=== PATIENT | female | born 1985 | race Caucasian/White ===

== ENCOUNTER 2017-02-07 11:59 | Emergency (ER) | payer OTHER ==
[2017-02-07] MEDS ORDERED: Tetan/Diph/Pertus SYR(Tdap)* 0.5 ML SYR(BOOSTRIX) use SYR IM ONE (12:30)
[2017-02-07 14:20] LABS: Manual Entry Verification CAS0014; Rapid HIV INT CONT QC Line Present; Rapid HIV Kit Lot# H073002
[2017-02-07 14:39] VITALS: BP 123/82
[2017-02-07] MEDS ORDERED: Hepatitis B Immune Globulin* 1 ML VIAL IM ONE ×2 (14:40→15:00)
[2017-02-07] MEDS ORDERED: Hepatitis B Immune Globulin* > 312 UNITS/ML 5 ML VIAL IM ONE ×4 (15:00)
[2017-02-07] MEDS ORDERED: Hepatitis B Immune Globulin* > 312 UNITS/ML 5 ML VIAL ONE (15:04)
[2017-02-07] MEDS ORDERED: Tenofovir/Emtricitabine(*) TAB PO ONE ×2 (15:12→16:00)
[2017-02-07] MEDS ORDERED: Raltegravir* 400 MG TAB PO ONE ×2 (15:12→16:00)
[2017-02-07] MEDS ORDERED: Ondansetron ODT TAB* 4 MG PO ONE (15:13)
[2017-02-07 18:13] LABS: ALT 39 U/L (7-52); AST 48 U/L (13-39); Albumin 4.1 g/dL (3.2-5.2); Alkaline Phosphatase 44 U/L (34-104); Anion Gap 9 mmol/L (2-11); BUN/Creatinine Ratio 11.5 (8-20); Blood Urea Nitrogen 9 mg/dL (6-24); CO2 Carbon Dioxide 22 mmol/L (22-32); Calcium 9.4 mg/dL (8.6-10.3); Chloride 107 mmol/L (101-111); EGFR African American 111.5 (>60); EGFR Non-African American 86.7 (>60); Globulin 2.7 g/dL (2-4); Glucose 97 mg/dL (70-100); Potassium 4.1 mmol/L (3.5-5.0); Sodium 138 mmol/L (133-145); Total Protein 6.8 g/dL (6.4-8.9)
--- NOTE | 2017-02-09 18:24 | ED ---
- HPI Summary HPI Summary: Employee of [employer] [facility] [place], [place] here with needlestick. 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 This pt reports she couldn't get the needle to retract quickly enough hence the self-stick. She noticed bleeding under her glove and washed her hand after. Reported to boss who sent her here. She herself has no known h/o HIV, Hepatitis but reports she' s concerned as it appeared source pt may have Hepatits C. Source pt left before anyone could request further testing or access to records. No other injuries a result of incident. - History of Current Complaint Chief Complaint: EDExposureBodyFluid Stated Complaint: NEEDLE STICK CONTAMINATED NEEDLE Time Seen by Provider: 02/07/17 12:08 PMH/Surg Hx/FS Hx/Imm Hx Previously Healthy: Yes Endocrine/Hematology History: Reports: Hx Thyroid Disease - hypo Denies: Hx Anticoagulant Therapy, Hx Blood Disorders, Hx Diabetes, Autoimmune Disease Cardiovascular History: Denies: Hx Hypertension Respiratory History: Denies: Hx Asthma, Hx Chronic Obstructive Pulmonary Disease (COPD) GI History: Denies: Hx Ulcer - Surgical History Surgery Procedure, Year, and Place: Tonsilectomy. right elbow Infectious Disease History: No Infectious Disease History: Denies: Hx Clostridium Difficile, Hx Hepatitis, Hx Human Immunodeficiency Virus (HIV), Hx of Known/Suspected MRSA, Hx Shingles, Hx Tuberculosis, Hx Known/ Suspected VRE, Hx Known/Suspected VRSA, History Other Infectious Disease, Traveled Outside the [place] in Last 30 Days - Family History Known Family History: Positive: None - Social History Occupation: Employed Full-time Alcohol Use: Occasionally Hx Substance Use: No Substance Use Type: Reports: None Hx Tobacco Use: No Smoking Status (MU): Never Smoked Tobacco Have You Smoked in the Last Year: No Review of Systems Constitutional: Negative Negative: Fever, Chills, Fatigue Positive: no symptoms reported Musculoskeletal: Negative Negative: Arthralgia, Myalgia, Decreased ROM, Edema Skin: Other - see HPI Neurological: Negative Psychological: Normal All Other Systems Reviewed And Are Negative: Yes Physical Exam Triage Information Reviewed: Yes Vital Signs On Initial Exam: Initial Vitals Temp Pulse Resp BP Pulse Ox 97.0 F 87 15 131/92 100 02/07/17 12:02 02/07/17 12:02 02/07/17 12:02 02/07/17 12:02 02/07/17 12:02 Vital Signs Reviewed: Yes Appearance: Positive: Well-Appearing, No Pain Distress, Obese Skin: Positive: Warm, Dry - pinpoint area of erythema over distal tip of Left index finger - no bleeding, no streaking - wound is closed; mild TTP Eyes: Positive: Normal, EOMI ENT: Positive: Hearing grossly normal Respiratory/Lung Sounds: Positive: Breath Sounds Present Cardiovascular: Positive: Pulses are Symmetrical in both Upper and Lower Extremities Musculoskeletal: Positive: Normal, Strength/ROM Intact Neurological: Positive: Normal, Sensory/Motor Intact, Alert, Oriented to Person Place, Time, CN Intact II-III Psychiatric: Positive: Normal Diagnostics - Vital Signs Vital Signs Temp Pulse Resp BP Pulse Ox 02/07/17 14:38 98.6 F 86 16 123/82 100 02/07/17 12:23 97 F 87 18 131/92 100 02/07/17 12:02 97.0 F 87 15 131/92 100 - Laboratory Lab Results: Lab Results 02/07/17 02/07/17 Range/Units 13:36 13:36 Sodium 138 (133-145) mmol/L Potassium 4.1 (3.5-5.0) mmol/L Chloride 107 (101-111) mmol/L Carbon Dioxide 22 (22-32) mmol/L Anion Gap 9 (2-11) mmol/L BUN 9 (6-24) mg/dL Creatinine 0.78 (0.51-0.95) mg/dL Est GFR ( Amer) 111.5 (>60) Est GFR (Non-Af Amer) 86.7 (>60) BUN/Creatinine Ratio 11.5 (8-20) Glucose 97 (70-100) mg/dL Calcium 9.4 (8.6-10.3) mg/dL Total Bilirubin 0.30 (0.2-1.0) mg/dL AST 48 H (13-39) U/L ALT 39 (7-52) U/L Alkaline Phosphatase 44 (34-104) U/L Total Protein 6.8 (6.4-8.9) g/dL Albumin 4.1 (3.2-5.2) g/dL Globulin 2.7 (2-4) g/dL Albumin/Globulin Ratio 1.5 (1-3) Beta HCG, Quant < 0.60 mIU/mL Hepatitis B Antibody Reactive (Nonreactive) Hep Bs Antigen Nonreactive (Nonreactive) Hep Bs Antibody, Quant 132.16 (<12) mIU/mL Hepatitis C Antibody Nonreactive (Nonreactive) HIV 1&2 Antibody Rapid Nonreactive (Nonreactive) Result Diagrams: 02/07/17 13:36 Lab Statement: Any lab studies that have been ordered have been reviewed, and results considered in the medical decision making process. Needlestick Course/Dx - Course Course Of Treatment: Discussed type of injury with Rosemarie from HIV hotline as ID is not available today. SHe reports this type of injury as low risk. However given the pt's concerns about source pt possibly having Hep C, we decided to initiate PEP as Hep C carries high riskof co-infection and w/o timely consent from srouce pt (charge nurse attempted to contact w/o results today), we felt benefits of starting this medication would outweight the risks taking. Pt agrees and will f/u w/ Dr. Priscilla ROD for further testing and guidance re: tx. - Diagnoses Provider Diagnoses: Needlestick injury of finger of left hand - Physician Notifications Discussed Care Of Patient With: Oswald Rice Discharge - Discharge Plan Condition: Stable Disposition: HOME Prescriptions: Ondansetron ODT TAB* [Zofran 4 MG Odt TAB*] 4 mg PO Q6H PRN #8 tab.odt PRN Reason: Nausea Patient Education Materials: Hepatitis B Immune Globulin (By injection), Emtricitabine/Tenofovir (By mouth), Raltegravir (By mouth), Needle Stick Injuries (ED) Referrals: Priscilla INIGUEZ,Willis Sanchez [Medical Doctor] - Additional Instructions: You have sustained a needle stick injury today. It was deemed as a low risk injury per the HIV Hotline. Discussed risk/benefit of taking PEP (Post Exposure Prophylaxis) - we decided to refrain from this today. You were however concerned about Hepatitis and have shared that despite vaccines, you do not mount adequate antibodies. We have provided you with this today and recommend repeat treatment in 28-30 days from today. You have also had baseline testing today. Please follow-up with Dr. Wells for results and future testing schedule - call his office today schedule appointment. *If you develop chest pain, shortness of breath, fever, chills, vomiting, diarrhea, night sweats, unintentional weight loss, return to ED
== END 2017-02-07 15:55 | disposition home or self-care (01) ==
LOC: ED 11:59
DX: S61.231A Puncture wound without foreign body of left index finger without damage to nail, initial encounter (principal); W27.3XXA Contact with needle (sewing), initial encounter; Y93.89 Activity, other specified; Y92.89 Other specified places as the place of occurrence of the external cause
CPT/HCPCS: 36415; 80053; 84702; 86703; 86706; 86803; 87340; 90371; 90471; 90715; 96372; 99282; A9270-GY

== ENCOUNTER 2017-05-24 17:18 | Emergency (ER) | payer OTHER ==
[2017-05-24] MEDS ORDERED: Triamcinolone Acetonide* 40 MG/ML 1 ML VIAL IM ONE (19:01)
--- NOTE | 2017-05-24 19:03 | UC ---
Skin Complaint HPI - HPI Summary HPI Summary: 32 yo female with pruritic rash both politeal regions x 3 days getting worse no pain - History of Current Complaint Chief Complaint: UCLowerExtremity Time Seen by Provider: 05/24/17 18:52 Stated Complaint: RASH Hx Obtained From: Patient Hx Last Menstrual Period: 2 months ago Onset/Duration: Gradual Onset, Lasting Days Timing: Constant Onset Severity: Mild Current Severity: Mild Pain Intensity: 1 Pain Scale Used: 0-10 Numeric Location: Discrete Character: Pruritus, Raised Aggravating Factor(s): Touch Alleviating Factor(s): Nothing Associated Signs & Symptoms: Positive: Rash - Allergy/Home Medications Allergies/Adverse Reactions: Allergies Allergy/AdvReac Type Severity Reaction Status Date / Time Iodine Allergy Unknown Verified 05/24/17 18:03 Reaction Details Sulfa Antibiotics Allergy Unknown Verified 05/24/17 18:03 Reaction Details Home Medications: Home Medications Levothyroxine TAB* [Synthroid 137 MCG TAB*] 1 tab PO DAILY 05/24/17 [History Confirmed 05/24/17] Spironolactone TAB* [Aldactone TAB 25 MG*] 1 tab PO DAILY 05/24/17 [History Confirmed 05/24/17] metFORMIN* [Glucophage 500 MG TAB *] 1 tab PO BID 05/24/17 [History Confirmed ] Review of Systems Constitutional: Negative Skin: Negative Eyes: Negative ENT: Negative Respiratory: Negative Cardiovascular: Negative Gastrointestinal: Negative Genitourinary: Negative Motor: Negative Neurovascular: Negative Musculoskeletal: Negative Neurological: Negative Psychological: Negative Is Patient Immunocompromised?: No All Other Systems Reviewed And Are Negative: Yes PMH/Surg Hx/FS Hx/Imm Hx Previously Healthy: Yes Other History Of: Negative For: Anticoagulant Therapy - Surgical History Surgical History: Yes Surgery Procedure, Year, and Place: Tonsilectomy. right elbow - Family History Known Family History: Positive: Hypertension, Diabetes - Social History Alcohol Use: Occasionally Substance Use Type: None Smoking Status (MU): Former Smoker Have You Smoked in the Last Year: No When Did the Patient Quit Smoking/Using Tobacco: 2011 Household Exposure Type: Pipe Physical Exam Triage Information Reviewed: Yes Appearance: Well-Appearing, No Pain Distress, Well-Nourished Vital Signs: Initial Vital Signs Temp 97.3 F 05/24/17 17:59 Pulse 92 05/24/17 17:59 Resp 18 05/24/17 17:59 BP 137/73 05/24/17 17:59 Pulse Ox 99 05/24/17 17:59 Vital Signs Reviewed: Yes Eyes: Positive: Conjunctiva Clear ENT: Positive: Hearing grossly normal. Negative: Nasal congestion, Trismus, Muffled voice, Hoarse voice Neck: Positive: Supple, Nontender, No Lymphadenopathy Respiratory: Positive: Lungs clear, Normal breath sounds, No respiratory distress Cardiovascular: Positive: RRR, No Murmur Musculoskeletal: Positive: ROM Intact, No Edema Neurological: Positive: Alert Psychological Exam: Normal Course/Dx - Diagnoses Provider Diagnoses: contact dermatitis Discharge - Discharge Plan Condition: Stable Disposition: HOME Patient Education Materials: Contact Dermatitis (ED) Referrals: No Primary Care Phys,NOPCP [Primary Care Provider] - Additional Instructions: recheck for worsening symptoms or if not cleared completely in 2 weeks Images Front/Back of Body, Lg ([place]): 1 - rashes c/w contact derm
[2017-05-24 19:43] VITALS: BP 123/85
== END 2017-05-24 19:40 | disposition home or self-care (01) ==
LOC: UCEAST 17:18
DX: L25.9 Unspecified contact dermatitis, unspecified cause (principal); Z87.891 Personal history of nicotine dependence; Z88.2 Allergy status to sulfonamides
CPT/HCPCS: 99212; G0463; J3301

== ENCOUNTER 2018-11-12 19:32 | Emergency (ER) | payer BC ==
--- OUTSIDE RECORDS SUMMARY | 2018-11-12 20:01 | XMS REPORT | Continuity of Care Document ---
:1985 External Reference #:[id number] Author Name Yasemin Albert, PNP-BC, [employer] SAL[employer]IVE, Ibcl[facility] Address [address] [place] [address] Care Team Providers Name Role Phone Yasemin Albert PNP-BC, [employer] SAL[employer] EXECUTIVE, [employer]cl[employer] Care Team Information Interventional Physiatrist Unavailable Yasemin Albert PNP-BC, [employer] SAL[employer] EXEC[employer]IVE, [employer] Primary Care Physician Unavailable Payers Date Identification Numbers Payment Provider Subscriber Effective: 2018 Policy Number: [id number] Magdy Radha Pacheco Ramy PayID: [id number] [facility] [address] [place] [address] Advance Directives Description No Information Available Problems Description No Information Family History Description No Information Available Social History Type Date Description Comments Sex Unknown Occupation laborer [employer] Tobacco Use Start: Unknown End: Unknown Former Cigarette Smoker Smoking Status Reviewed: 10/15/18 Former Cigarette Smoker ETOH Use Occasionally consumes alcohol Tobacco Use Start: Unknown End: Unknown Patient is a former smoker Allergies, Adverse Reactions, Alerts Active Allergies Reaction Severity Comments Date Sulfa Drugs 06/18/2017 Iodine 06/18/2017 Medications Active Medications SIG Qnty Indications Ordering Date Provider Amoxicillin/Clavulanate 1 by mouth 20tabs J01.90 Yasemin Albert, 10/15/2018 Potassium twice a day for PNP-BC, [employer] SAL[employer] EX[employer]IVE, 875-125mg Tablets 10 days Ibclc Azelastine HCL (Nasal) 1-2 spray each 90ml J01.90 Yasemin Albert, 2018 nare twice a PNP-BC, [employer]IVE, 137mcg/[place] Solution day Ibclc Escitalopram Oxalate 1 by mouth 90tabs F41.9 Yasemin Albert, 06/24/2018 10mg every day PNP-BC, [employer]IVE, Tablets Ibcl[facility] Synthroid take 1 tablet 90tabs Yasemin Albert, 137mcg Tablets daily. PNP-BC, [employer] SAL[employer] EXEC[employer]IVE, Ibcl[employer] Metformin HCL take 2 tablet Unknown 500mg Tablets by mouth twice a day Juleber 1 tablet by 168tabs Yasemin Albert, 0.15-30mg-mcg mouth daily PNP-BC, [employer] SAL[employer] EXEC[employer]IVE, Tablets Ibclc Spironolactone 1 by mouth 90tabs Yasemin Albert, 50mg Tablets every day PNP-BC, [employer] SAL[employer] EXECUTIVE, Ibcl[employer] Phentermine HCL Take One Unknown 30mg Capsule By Capsules Mouth Every Morning Maximum Daily Dose 1 History Medications Amoxicillin 1 by mouth twice 20tabs J01.90 Yasemin Albert, 09/24/2018 - 875mg a day PNP-BC, [employer] SAL[employer] EXEC[employer]IVE, 10/04/2018 Tablets Ibclc Clonidine HCL take one to two 180tabs F41.9 Yasemin Albert, 04/14/2018 - 0.1mg tablets by mouth PNP-BC, [employer]IVE, 06/24/2018 Tablets three times a Ibclc day as needed Magnesium Oxide -MG 1 tab po daily 30capAnt Whiting MD 06/26/2017 - Supplement 04/14/2018 400mg Capsules Magnesium Cit OTC 1 Cap PO Unknown - daily 06/24/2018 Immunizations CPT Code Status Date Vaccine Lot # [id number] Ordered 03/10/2018 Influenza Vaccine (Fluzone) Age 3 And Older Vital Signs Date Vital Result Comment 10/15/2018 8:43am BP Systolic Sitting Left Arm 126 mmHg BP Diastolic Sitting Left Arm 84 mmHg Body Temperature 98.0 F Heart Rate 83 /min Weight 290.00 lb O2 % BldC Oximetry 98 % 09/24/2018 11:03am BP Systolic 122 mmHg BP Diastolic 68 mmHg Heart Rate 67 /min Respiratory Rate 16 /min Height 70 inches 5'10" Weight 284.00 lb BMI (Body Mass Index) 40.7 kg/m2 BSA (Body Surface Area) 2.42 m2 [place] body weight in kilograms 68 kg 06/24/2018 5:48pm BP Systolic 124 mmHg BP Diastolic 68 mmHg Body Temperature 98.4 F Heart Rate 79 /min Respiratory Rate 16 /min Height 71 inches 5'11" Weight 286.00 lb BMI (Body Mass Index) 39.9 kg/m2 BSA (Body Surface Area) 2.45 m2 [place] body weight in kilograms 70 kg O2 % BldC Oximetry 99 % 04/14/2018 2:12pm BP Systolic Sitting Left Arm 120 mmHg BP Diastolic Sitting Left Arm 70 mmHg Body Temperature 98.6 F Heart Rate 99 /min Height 71 inches 5'11" Weight 286.00 lb BMI (Body Mass Index) 39.9 kg/m2 BSA (Body Surface Area) 2.45 m2 [place] body weight in kilograms 70 kg O2 % BldC Oximetry 97 % 06/26/2017 11:19am BP Systolic Sitting Right Arm 150 mmHg BP Diastolic Sitting Right Arm 90 mmHg Heart Rate 78 /min Respiratory Rate 18 /min Height 70 inches 5'10" Weight 299.00 lb BMI (Body Mass Index) 42.9 kg/m2 BSA (Body Surface Area) 2.48 m2 [place] body weight in kilograms 68 kg Results Test Date Facility Test Result H/L Range Note Laboratory test 06/25/2018 [facility] Hemoglobin A1c 5.0 % N 4.0-5.6 1 finding [phone] (Glyco HGB) CBC Auto Diff 06/25/2018 [facility] White Blood 8.6 10^3/uL N 3.5-10.8 [phone] Count Red Blood Count 4.91 10^6/uL N 4.00-5.40 Hemoglobin 14.1 g/dL N 12.0-16.0 Hematocrit 42 % N 35-47 Mean Corpuscular Volume 85 fL N 80-97 Mean Corpuscular Hemoglobin 29 pg N 27-31 Mean Corpuscular HGB Conc 34 g/dL N 31-36 Red Cell Distribution Width 13 % N 10.5-15 Platelet Count 297 10^3/uL N 150-450 Mean Platelet Volume 7.4 fL N 7.4-10.4 Abs Neutrophils 5.3 10^3/uL N 1.5-7.7 Abs Lymphocytes 2.6 10^3/uL N 1.0-4.8 Abs Monocytes 0.5 10^3/uL N 0-0.8 Abs Eosinophils 0 10^3/uL N 0-0.6 Abs Basophils 0 10^3/uL N 0-0.2 Abs Nucleated RBC 0 10^3/uL Granulocyte % 62.0 % Lymphocyte % 30.9 % Monocyte % 6.3 % Eosinophil % 0.5 % Basophil % 0.3 % Nucleated Red Blood Cells % 0 Iron & Iron Binding 06/25/2018 [facility] Iron 117 g/dL N 50-212 Capacity [phone] Unsaturated Iron Binding < 369 g/dL Total Iron Binding Capacity 384 g/dL N 250-450 Transferrin 274 mg/dL N 203-362 % Iron Saturation 30 % N 15-55 Laboratory test 06/25/2018 [facility] TSH (Thyroid 3.10 mcIU/mL N 0.34-5.60 finding [phone] Stim Horm) Free T4 (Free Thyroxine) 0.66 ng/dL N 0.61-1.12 T3 Free 3.30 pg/mL N 2.5-3.9 Lipid Profile 06/25/2018 [facility] Triglycerides 291 mg/dL 2 (Trig/Chol/HDL) [phone] Cholesterol 183 mg/dL 3 HDL Cholesterol 42.4 mg/dL 4 LDL Cholesterol 82 mg/dL 5 Comp Metabolic Panel 06/25/2018 [facility] Sodium 138 mmol/L N 135-145 [phone] Potassium 4.2 mmol/L N 3.5-5.0 Chloride 104 mmol/L N 101-111 Co2 Carbon Dioxide 26 mmol/L N 22-32 Anion Gap 8 mmol/L N 2-11 Glucose 103 mg/dL High 70-100 Blood Urea Nitrogen 15 mg/dL N 6-24 Creatinine 0.93 mg/dL N 0.51-0.95 BUN/Creatinine Ratio 16.1 N 8-20 Calcium 9.7 mg/dL N 8.6-10.3 Total Protein 7.0 g/dL N 6.4-8.9 Albumin 4.1 g/dL N 3.2-5.2 Globulin 2.9 g/dL N 2-4 Albumin/Globulin Ratio 1.4 N 1-3 Total Bilirubin 0.40 mg/dL N 0.2-1.0 Alkaline Phosphatase 51 U/L N 34-104 Alt 15 U/L N 7-52 Ast 12 U/L Low 13-39 Egfr Non- 69.9 >60 Egfr 84.5 >60 6 Urine Dipstick 04/14/2018 [facility] In[facility] Ua Color yellow Yellow Ua Clarity clear Clear Ua Leuko negative Negative Ua Nitrite negative Negative Ua Urobilinogen 3.5 umol/L High 0.2 - 1.0 E.U./dL Ua Protein negative Negative Ua PH 6.0 Low 6.5-7.5 Ua Blood negative Negative Ua Specific [place] 1.030 1.010-1.030 Ua Ketones negative Negative Ua Bilirubin negative Negative Ua Glucose negative Negative Order 07/09/2017 [facility] - Cardiology Dept. 30 Day Cardiac <pending> [place] [address] Event Monitor [phone] Basic Metabolic 06/26/2017 [facility] Sodium 135 mmol /L N 133-145 Panel [phone] Potassium 3.9 mmol/L N 3.5-5.0 Chloride 99 mmol/L Low 101-111 Co2 Carbon Dioxide 27 mmol/L N 22-32 Anion Gap 9 mmol/L N 2-11 Glucose 117 mg/dL High 70-100 Blood Urea Nitrogen 12 mg/dL N 6-24 Creatinine 0.94 mg/dL N 0.51-0.95 BUN/Creatinine Ratio 12.8 N 8-20 Calcium 9.9 mg/dL N 8.6-10.3 Egfr Non- 69.5 >60 Egfr 89.3 >60 7 Laboratory test 06/26/2017 [facility] Magnesium 1.7 mg/dL Low 1.9-2.7 finding [phone] 1 Therapeutic target for the treatment of diabetes mellitus patients is <7% HBA1C, and in selective patients <6.0%. Please refer to [place] [employer] Association diabetic care guidelines for further information. 2 Desirable: <150 Borderline High: 150-199 High: 200-499 Very High: >500 3 Desirable: <200 Borderline High: 200-239 High: >239 4 Low: <40 Desirable: 40-60 High: >60 5 Desirable: <100 Near Optimal: 100-129 Borderline High: 130-159 High: 160-189 Very High: >189 6 Because ethnic data is not always readily available, this report includes an eGFR for both -Americans and non- Americans. The National Kidney Disease Education Program (NKDEP) does not endorse the use of the MDRD equation for patients that are not between the ages of 18 and 70, are , have extremes of body size, muscle mass, or nutritional status, or are non- or non-. According to the National Kidney Foundation, irrespective of diagnosis, the stage of the disease is based on the level of kidney function: Stage Description GFR(mL/min/1.73 m(2)) 1 Kidney damage with normal or decreased GFR 90 2 Kidney damage with mild decrease in GFR 60-89 3 Moderate decrease in GFR 30-59 4 Severe decrease in GFR 15-29 5 Kidney failure <15 (or dialysis) 7 Because ethnic data is not always readily available, this report includes an eGFR for both -Americans and non- Americans. The National Kidney Disease Education Program (NKDEP) does not endorse the use of the MDRD equation for patients that are not between the ages of 18 and 70, are , have extremes of body size, muscle mass, or nutritional status, or are non- or non-. According to the National Kidney Foundation, irrespective of diagnosis, the stage of the disease is based on the level of kidney function: Stage Description GFR(mL/min/1.73 m(2)) 1 Kidney damage with normal or decreased GFR 90 2 Kidney damage with mild decrease in GFR 60-89 3 Moderate decrease in GFR 30-59 4 Severe decrease in GFR 15-29 5 Kidney failure <15 (or dialysis) Procedures Date Code Description Status 04/14/2018 00633 Brief Emotional/Behav Assessment W/ Scoring Doc Per Completed Standard Inst 07/15/2017 60996 Echocardiogram Complete Completed 07/09/2017 42853 Event Monitor Inter/Review Only Completed 06/26/2017 48935 EKG-Tracing And Report Completed Encounters Type Date Location Provider Dx Diagnosis Office Visit 10/15/2018 Family Yasemin Briones, J01.90 Acute sinusitis, 8:[address]a [address] PNP-BC, [employer]EC[employer]IVE, unspecified Ibcl[facility] R50.9 Fever, unspecified Office Visit 09/24/2018 11:15a Yasemin Banerjee, F41.9 Anxiety disorder, [address] PNP-BC, [employer]EC[employer]IVE, unspecified [facility]cl[facility] J30.9 Allergic rhinitis, unspecified J01.90 Acute sinusitis, unspecified Office Visit 06/24/2018 5:45p Yasemin Banerjee F41.9 Anxiety disorder, [facility] PNP-BC, [employer] EXEC[employer]IVE, unspecified Ibcl[facility] Z13.1 Encounter for screening for diabetes mellitus D64.9 Anemia, unspecified E03.9 Hypothyroidism, unspecified Z13.220 Encounter for screening for lipoid disorders Office Visit 06/26/2017 11:00a Cardiology Office Ant Hollis MD R00.2 Palpitations R55 Syncope and collapse Plan of Treatment Future Appointment(s):03/25/2019 10:30 am - Yasemin Albert, EDNA-BC, [employer] SAL[employer] EXEC[employer]IVE, [facility]2018 - Yasemin Albert PNP-BC, [employer] SAL[employer] EXECUTIVE, SrzzaU37.90 Acute sinusitis, unspecifiedNew Medication:Amoxicillin/Clavulanate Potassium 875 -125 mg - 1 by mouth twice a day for 10 daysNew Labs:Lyme Screen W/ Reflex To WB , Ordered: 10/15/18Monospot, Ordered: 10/15/18CBC Auto Diff, Ordered: Comments:since it's been going on so long now we'll do the blood work and go from there.R50.9 Fever, unspecifiedNew Labs:Lyme Screen W/ Reflex To WB, Ordered : 10/15/18Monospot, Ordered: 10/15/18CBC Auto Diff, Ordered: 10/15/18
[2018-11-12 20:10] VITALS: BP 131/88
[2018-11-12] MEDS ORDERED: Tetan/Diph/Pertus SYR(Tdap)* 0.5 ML SYR(BOOSTRIX) use SYR IM ONE (20:42)
--- NOTE | 2018-11-12 20:45 | UC ---
General HPI - HPI Summary HPI Summary: pt states that a large piece of broken glass from a dish fell off a shelf and landed on her R foot. she has 2 cuts on the top of her R foot. she noted discoloration to her 5th toe after. she denies FB sensation. last tetanus is not known. occurred [employer]. - History of Current Complaint Chief Complaint: UCLaceration Stated Complaint: RIGHT FOOT INJURY Time Seen by Provider: 11/12/18 20:30 Hx Obtained From: Patient Hx Last Menstrual Period: 10/22/18 Onset/Duration: Sudden Onset Pain Intensity: 1 Associated Signs & Symptoms: Negative: Fever - Allergy/Home Medications Allergies/Adverse Reactions: Allergies Allergy/AdvReac Type Severity Reaction Status Date / Time iodine Allergy Unknown Verified 11/12/18 20:11 Reaction Details Sulfa (Sulfonamide Allergy Unknown Verified 11/12/18 20:11 Antibiotics) Reaction Details Home Medications: Home Medications Bcp 11/12/18 [History] PMH/Surg Hx/FS Hx/Imm Hx - Additional Past Medical History Additional PMH: PCOS Endocrine History: Thyroid Disease Other History Of: Negative For: Anticoagulant Therapy - Surgical History Surgical History: Yes Surgery Procedure, Year, and Place: Tonsilectomy. right elbow - Family History Known Family History: Positive: None, Hypertension, Diabetes - Social History Alcohol Use: Occasionally Substance Use Type: None Smoking Status (MU): Former Smoker Have You Smoked in the Last Year: No When Did the Patient Quit Smoking/Using Tobacco: 2011 Household Exposure Type: Pipe Review of Systems All Other Systems Reviewed And Are Negative: No Constitutional: Negative: Fever Skin: Negative: Rash Musculoskeletal: Positive: Edema - R dorsal foot. Negative: Decreased ROM Neurological: Negative: Paresthesia, Numbness Physical Exam Triage Information Reviewed: Yes Appearance: Well-Appearing Vital Signs: Initial Vital Signs Temp 98.2 F 11/12/18 20:05 Pulse 89 11/12/18 20:05 Resp 16 11/12/18 20:05 BP 131/88 11/12/18 20:05 Pulse Ox 98 11/12/18 20:05 Vital Signs Reviewed: Yes Eyes: Positive: Conjunctiva Clear Respiratory: Positive: No respiratory distress Cardiovascular: Positive: RRR Musculoskeletal: Positive: Other: - R foot: mild proximal dorsal swelling, bruising and tenderness with 2 small central lacerations. foot has gross sensory and vascular function. pt able to plantar and dorsiflex plus curl and straighten her toes. The is no erythema, warmth or drainage. Neurological: Positive: Alert Psychological: Positive: Age Appropriate Behavior Skin Exam: Normal Course/Dx - Course Course Of Treatment: Xray of foot advised to exclude fx and potential fb's; however, pt declined citing "it won't show anything because it is not broken" and "glass won't show". wounds washed with soap and water then dried. Bacitracin applied follow by a small non stick dressing. post op shoe offered for comfort but pt declined. no overt limited rom but will refer to orthopedics for a recheck. - Diagnoses Provider Diagnosis: Contusion of foot, right, Laceration of skin of right foot Discharge - Sign-Out/Discharge Documenting (check all that apply): Patient Departure All imaging exams completed and their final reports reviewed: No Studies - Discharge Plan Condition: Stable Disposition: HOME Patient Education Materials: Laceration (ED), Foot Contusion (ED) Referrals: Yasemin Albert NP [Primary Care Provider] - If Needed Dre Posey MD [Medical Doctor] - 2 Days - Billing Disposition and Condition Condition: STABLE Disposition: Home
== END 2018-11-12 20:54 | disposition home or self-care (01) ==
LOC: UCCORT 19:32
DX: S91.311A Laceration without foreign body, right foot, initial encounter (principal); W25.XXXA Contact with sharp glass, initial encounter; W20.8XXA Other cause of strike by thrown, projected or falling object, initial encounter; Y92.9 Unspecified place or not applicable; Z87.891 Personal history of nicotine dependence
CPT/HCPCS: 90471; 90715; 99211; G0463